=== PATIENT | male | born 1940 | race American Indian/Alaskan Native ===

== ENCOUNTER 2017-09-05 09:19 | Emergency (ER) | payer MEDICARE, OTHER ==
[~2017-09-05] VITALS: Ht 182.9 cm; Wt 100.7 kg
--- NOTE | 2017-09-05 15:53 | EKG ---
[facility] [address] [facility] [place] [id number] Signed AV dual-paced rhythm with prolonged AV conduction Abnormal ECG No previous ECGs available Confirmed by ASAD FLORES MD ([id number] on 09/05/2017 3:53:44 PM Electronically Signed By: ASAD FLORES MD 09/05/17 1553 PATIENT NAME: CLARICE BILLINGS Electrocardiogram DATE OF : 42 PHYSICIAN: ASAD FLORES MD REPORT #: [id number] REPORT IS CONFIDENTIAL AND NOT TO BE RELEASED WITHOUT AUTHORIZATION
== END 2017-09-05 11:01 | disposition home or self-care (01) ==
LOC: ED 09:19
DX: M94.0 Chondrocostal junction syndrome [Tietze] (principal)
CPT/HCPCS: 71010; 80053; 84484; 85025; 85610; 85730; 93005; 93010; 99284